=== PATIENT | female | born 1940 | race Caucasian/White ===

== ENCOUNTER 2017-12-23 11:10 | Emergency (ER) | payer MEDICARE, OTHER ==
[~2017-12-23] VITALS: Ht 154.9 cm; Wt 59.4 kg
[2017-12-23] MEDS ORDERED: VENTOLIN HFA18 GM INH (11:27)
[2017-12-23] MEDS ORDERED: AMLODIPINE BESY10 MG PO (11:28)
[2017-12-23] MEDS ORDERED: ASPIR-LOW81 MG PO (11:28)
[2017-12-23] MEDS ORDERED: KLONOPIN1 MG PO (11:29)
[2017-12-23] MEDS ORDERED: MELATONIN3 MG PO (11:30)
[2017-12-23] MEDS ORDERED: DAILY MULTIPLE1 EAC2 PO (11:30)
[2017-12-23] MEDS ORDERED: CLONIDINE1 EACH TD (11:30)
[2017-12-23] MEDS ORDERED: HYDRALAZINE HCL10 MG PO (11:31)
[2017-12-23] MEDS ORDERED: SENNA8.6 MG PO (11:31)
[2017-12-23] MEDS ORDERED: IPRAT-ALBUT 0.5-3 ML INH (11:32)
[2017-12-23] MEDS ORDERED: LEVOTHYROXINE137 MCG PO (11:33)
[2017-12-23] MEDS ORDERED: SEROQUEL100 MG PO ×2 (11:33→11:34)
[2017-12-23] MEDS ORDERED: LEXAPRO20 MG PO (11:33)
[2017-12-23] MEDS ORDERED: SODIUM CHLORIDE1 GM PO (11:34)
[2017-12-23] MEDS ORDERED: SPIRIVA18 MCG INH (11:35)
[2017-12-23] MEDS ORDERED: SYMBICORT 16010.2 GM INH (11:36)
[2017-12-23] MEDS ORDERED: VAGIFEM10 MCG VAGINAL (11:36)
[2017-12-23] MEDS ORDERED: YUVAFEM10 MCG VAGINAL (11:37)
[2017-12-23] MEDS ORDERED: VITAMIN D1000 UNIT PO (11:37)
--- NOTE | 2017-12-24 16:04 | EKG ---
[facility] [address] [place], [place] [address] Signed Normal sinus rhythm Abnormal ECG No previous ECGs available Confirmed by DEVORAH ARMAS DO ([id number]) on 12/24/2017 4:04:18 PM Electronically Signed By: DEVORAH ARMAS DO 12/24/17 1604 PATIENT NAME: SERGIO FERNANDEZ Electrocardiogram DATE OF : 44 PHYSICIAN: DEVORAH ARMAS DO REPORT #: [id number] REPORT IS CONFIDENTIAL AND NOT TO BE RELEASED WITHOUT AUTHORIZATION
== END 2017-12-23 13:13 | disposition home or self-care (01) ==
LOC: ED 11:10
DX: F41.9 Anxiety disorder, unspecified (principal); J44.9 Chronic obstructive pulmonary disease, unspecified; Z88.0 Allergy status to penicillin; Z79.82 Long term (current) use of aspirin; Z79.899 Other long term (current) drug therapy
CPT/HCPCS: 36415; 71045; 80053; 84484; 85025; 93005; 93010; 94640; 96374; 99285; J2060